=== PATIENT | female | born 1940 | race Caucasian/White ===

== ENCOUNTER 2021-04-29 22:11 | Inpatient (IN) ==
[2021-04-29 22:47] LABS: Hematocrit 39.6 % (35.3-44.9); Hemoglobin 12.5 g/dL (11.5-15.4); Immature Granulocytes % 0.4 % (0-4); Lymphocytes # 147.2 K/mcL (0.6-4.6); Lymphocytes % 91.5 %; Mean Corpuscular HGB Conc 31.6 g/dL (31.6-35.5); Mean Corpuscular Hemoglobin 28.4 pg (28.0-33.3); Mean Platelet Volume 10.9 fL (9.4-12.4); Monocytes # 3.1 K/mcL (0.0-1.3); Monocytes % 1.9 %; Platelet Count 306 K/mcL (140-400); Red Cell Distribution Width 16.1 % (11.5-14.5); Segmented Neutrophils % 6.2 %
[2021-04-29 22:51] LABS: White Blood Count 160.9 K/mcL (4.3-11.1)
[2021-04-29 23:01] LABS: Calcium 8.2 mg/dL (8.6-10.3); Potassium 4.2 mEq/L (3.5-5.1)
[2021-04-29] MEDS ORDERED: Isovue-370 500 ML BOTTLE IVP ONE (23:13)
[2021-04-29 23:14] LABS: Anisocytosis 1+ (Not Present); Platelet Estimate Normal (Normal); Reactive Lymphocytes Present (Not Present)
[2021-04-29 23:15] LABS: Smudge Cells Present (Not Present)
[2021-04-29 23:49] LABS: Albumin 3.3 g/dL (3.5-5.7); Bilirubin,Direct 0.1 mg/dL (0.0-0.2); Bilirubin,Indirect 0.6 mg/dL (0.0-1.0); Bilirubin,Total 0.7 mg/dL (0.3-1.0); Globulin 3.2 g/dL (2.4-3.5); Total Protein 6.5 g/dL (6.4-8.9); Troponin I 0.03 ng/mL (< 0.04)
[2021-04-30] MEDS ORDERED: 0.9 % Sodium Chloride 1,000 ML IVC ONE (00:56)
[2021-04-30 01:13] LABS: Influenza A PCR Negative (Negative); Influenza B PCR Negative (Negative); Resp. Syncytial Virus PCR Negative (Negative)
[2021-04-30 01:27] LABS: SARS-CoV-2 by PCR (In House) Positive (Negative)
[2021-04-30] MEDS ORDERED: *HR* Promethazine 25 MG/ML VIAL IM PRN (02:31)
[2021-04-30] MEDS ORDERED: *HR* OxyCODONE Immed Rel 5 MG TABLET PO PRN (02:31)
[2021-04-30] MEDS ORDERED: Ondansetron 4 MG/2 ML VIAL IVP PRN (02:31)
[2021-04-30] MEDS ORDERED: *HR* HYDROcodone/Acet 5/325 mg TABLET PO PRN (02:31)
[2021-04-30] MEDS ORDERED: Melatonin 3 MG TABLET PO PRN (02:31)
[2021-04-30] MEDS ORDERED: Naloxone 0.4 MG/ML INJ IVP PRN (02:31)
[2021-04-30] MEDS ORDERED: Remdesivir 200 MG in 0.9 % Sodium Chloride 100 ML IVPB ONE (04:00)
[2021-04-30 08:54] LABS: Hemoglobin 11.4 g/dL (11.5-15.4); Segmented Neutrophils % 6.9 %
[2021-04-30 08:55] LABS: Hematocrit 36.6 % (35.3-44.9); Immature Granulocytes % 0.5 % (0-4); Lymphocytes % 90.6 %; Mean Corpuscular HGB Conc 31.1 g/dL (31.6-35.5); Mean Corpuscular Hemoglobin 28.4 pg (28.0-33.3); Mean Corpuscular Volume 91.3 fL (83.0-100.0); Mean Platelet Volume 10.9 fL (9.4-12.4); Monocytes # 2.9 K/mcL (0.0-1.3); Platelet Count 297 K/mcL (140-400); Red Blood Count 4.01 M/mcL (3.82-4.97); Red Cell Distribution Width 16.1 % (11.5-14.5)
[2021-04-30 08:59] LABS: Lymphocytes # 132.3 K/mcL (0.6-4.6); Neutrophils # 10.1 K/mcL (1.6-8.9)
[2021-04-30 09:00] LABS: Albumin 3.2 g/dL (3.5-5.7); Albumin/Globulin Ratio 1.2 (1.1-2.2); Bilirubin,Direct 0.2 mg/dL (0.0-0.2); Bilirubin,Indirect 0.5 mg/dL (0.0-1.0); Bilirubin,Total 0.7 mg/dL (0.3-1.0); Globulin 2.6 g/dL (2.4-3.5); Total Protein 5.8 g/dL (6.4-8.9)
[2021-04-30 09:02] LABS: INR 1.3; Platelet Estimate Normal (Normal); Reactive Lymphocytes Present (Not Present)
[2021-04-30 09:03] LABS: Alanine Aminotransferase 7 Units/L (7-52); Albumin 3.1 g/dL (3.5-5.7); Albumin/Globulin Ratio 1.1 (1.1-2.2); Alkaline Phosphatase 42 Units/L (34-104); Aspartate Amino Transferase 22 Units/L (13-39); BUN/Creatinine Ratio 25 (6-26); Bilirubin,Total 0.6 mg/dL (0.3-1.0); Blood Urea Nitrogen 26 mg/dL (8-23); Calcium 8.1 mg/dL (8.6-10.3); Carbon Dioxide 22 mEq/L (23-29); Chloride 100 mEq/L (98-107); Globulin 2.7 g/dL (2.4-3.5); Glucose 83 mg/dL (70-105); Lactate Dehydrogenase 296 Units/L (140-271); Magnesium 2.7 mg/dL (1.6-2.6); Osmolality,Calculated 280 (280-300); Phosphorous 3.8 mg/dL (2.7-4.5); Potassium 4.3 mEq/L (3.5-5.1); Sodium 133 mEq/L (136-145); Total Protein 5.8 g/dL (6.4-8.9); eGFR For African Americans > 60 (> 60); eGFR For Non-African Americans 52 (> 60)
[2021-04-30 09:16] LABS: Ferritin 711 ng/mL (10-120)
[2021-04-30] MEDS: cefTRIAXone 1,000 MG in Water for inj. (sterile) 10 ML IVP SCH (10:51)
[2021-04-30] MEDS: Azithromycin 500 MG in 0.9 % Sodium Chloride 250 ML IVPB SCH (10:52)
[2021-04-30] MEDS: *HR* Enoxaparin 40 MG/0.4 ML SYRINGE SQ SCH (10:52)
[2021-04-30 11:12] LABS: C-Reactive Protein 257 mg/L (Less than 10)
[2021-04-30] MEDS: Lactobacillus 1 EACH CAP.SPRINK PO SCH (14:30)
[2021-04-30 18:09] LABS: Adenovirus F 40/41 PCR Not detected (Not detect); Astrovirus PCR Not detected (Not detect); C.difficile Toxin A/B Gene PCR Not detected (Not detect); Campylobacter by PCR Not detected (Not detect); Cryptosporidium by PCR Not detected (Not detect); Cyclospora cayetanensis PCR Not detected (Not detect); E. coli O157 by PCR Not detected (Not detect); Entamoeba histolytica PCR Not detected (Not detect); Enteroaggregative E.coli(EAEC) Not detected (Not detect); Enteropathogenic E.coli(EPEC) Not detected (Not detect); Enterotoxigenic E.coli (ETEC) Not detected (Not detect); Giardia lamblia PCR Not detected (Not detect); Norovirus GI/GII PCR Not detected (Not detect); Plesiomonas shigelloides PCR Not detected (Not detect); Rotavirus A PCR Not detected (Not detect); Salmonella PCR Not detected (Not detect); Sapovirus PCR Not detected (Not detect); Shig/EnteroinvasiveE coli EIEC Not detected (Not detect); Shigalike tox-prod E coli STEC Not detected (Not detect); Vibrio PCR Not detected (Not detect); Vibrio cholerae PCR Not detected (Not detect); Yersinia enterocolitica PCR Not detected (Not detect)
[2021-04-30] MEDS: Acetaminophen 325 MG TABLET PO PRN (20:52)
[2021-04-30] MEDS ORDERED: Furosemide 40 MG/4 ML VIAL IVP ONE (22:29)
[2021-04-30 23:18] LABS: VBG HCO3 19 mEq/L (21-27); VBG PCO2 31 mmHg (41-51); VBG PH 7.41 pH Units (7.32-7.42); VBG PO2 160 mmHg (25-50)
[2021-05-01] MEDS ORDERED: Remdesivir 100 MG in 0.9 % Sodium Chloride 100 ML IVPB SCH (04:00)
[2021-05-01] MEDS: Acetaminophen 325 MG TABLET PO PRN ×2 (05:32→15:11)
[2021-05-01] MEDS: *HR* Enoxaparin 40 MG/0.4 ML SYRINGE SQ SCH (05:33)
[2021-05-01] MEDS: Azithromycin 500 MG in 0.9 % Sodium Chloride 250 ML IVPB SCH (05:33)
[2021-05-01 05:43] LABS: Basophils % 0.1 %; Immature Granulocytes % 0.5 % (0-4); Lymphocytes % 88.9 %; Mean Corpuscular Volume 90.8 fL (83.0-100.0)
[2021-05-01 05:45] LABS: Basophils # 0.1 K/mcL (0.0-0.2); Hematocrit 37.5 % (35.3-44.9); Hemoglobin 11.4 g/dL (11.5-15.4); Mean Corpuscular HGB Conc 30.4 g/dL (31.6-35.5); Mean Corpuscular Hemoglobin 27.6 pg (28.0-33.3); Mean Platelet Volume 10.8 fL (9.4-12.4); Monocytes % 1.8 %; Neutrophils # 11.7 K/mcL (1.6-8.9); Platelet Count 310 K/mcL (140-400); Red Blood Count 4.13 M/mcL (3.82-4.97); Red Cell Distribution Width 16.2 % (11.5-14.5); Segmented Neutrophils % 8.7 %
[2021-05-01 05:54] LABS: Lymphocytes # 119.4 K/mcL (0.6-4.6); Monocytes # 2.4 K/mcL (0.0-1.3); White Blood Count 134.3 K/mcL (4.3-11.1)
[2021-05-01 06:02] LABS: BUN/Creatinine Ratio 17 (6-26); Blood Urea Nitrogen 16 mg/dL (8-23); Calcium 7.9 mg/dL (8.6-10.3); Carbon Dioxide 21 mEq/L (23-29); Chloride 101 mEq/L (98-107); Glucose 99 mg/dL (70-105); Osmolality,Calculated 273 (280-300); Potassium 4.2 mEq/L (3.5-5.1); Sodium 131 mEq/L (136-145); eGFR For African Americans > 60 (> 60); eGFR For Non-African Americans 58 (> 60)
[2021-05-01 06:03] LABS: Albumin 3.1 g/dL (3.5-5.7); Albumin/Globulin Ratio 1.1 (1.1-2.2); Bilirubin,Direct 0.1 mg/dL (0.0-0.2); Bilirubin,Indirect 0.6 mg/dL (0.0-1.0); Bilirubin,Total 0.7 mg/dL (0.3-1.0); Globulin 2.7 g/dL (2.4-3.5); Total Protein 5.8 g/dL (6.4-8.9)
[2021-05-01 06:07] LABS: Platelet Estimate Normal (Normal); Reactive Lymphocytes Present (Not Present); Smudge Cells Present (Not Present)
[2021-05-01] MEDS: Dexamethasone Sodium Phos/PF 10 MG/ML VIAL IVP SCH (08:48)
[2021-05-01] MEDS: cefTRIAXone 1,000 MG in Water for inj. (sterile) 10 ML IVP SCH (08:49)
[2021-05-01] MEDS: Lactobacillus 1 EACH CAP.SPRINK PO SCH (08:56)
[2021-05-01] MEDS: Loratadine 10 MG TABLET PO SCH (11:04)
[2021-05-01] MEDS: Ipratropium 1 PUFF INHALER IH SCH ×3 (14:21→21:25)
[2021-05-01] MEDS: *HR* LORazepam 1 MG TABLET PO SCH (22:37)
[2021-05-02] MEDS: Ipratropium 1 PUFF INHALER IH SCH ×4 (04:49→21:48)
[2021-05-02 05:49] LABS: Immature Granulocytes % 0.5 % (0-4); Lymphocytes % 91.3 %
[2021-05-02 05:51] LABS: Hemoglobin 10.9 g/dL (11.5-15.4); Lymphocytes # 144.3 K/mcL (0.6-4.6); Mean Corpuscular HGB Conc 30.3 g/dL (31.6-35.5); Mean Corpuscular Hemoglobin 27.3 pg (28.0-33.3); Mean Platelet Volume 11.1 fL (9.4-12.4); Monocytes % 1.8 %; Neutrophils # 10.1 K/mcL (1.6-8.9); Platelet Count 353 K/mcL (140-400); Red Cell Distribution Width 15.9 % (11.5-14.5); Segmented Neutrophils % 6.4 %
[2021-05-02 05:53] LABS: Monocytes # 2.8 K/mcL (0.0-1.3)
[2021-05-02] MEDS: *HR* Enoxaparin 40 MG/0.4 ML SYRINGE SQ SCH ×2 (06:10→18:10)
[2021-05-02] MEDS: Azithromycin 500 MG in 0.9 % Sodium Chloride 250 ML IVPB SCH (06:12)
[2021-05-02 06:16] LABS: Alanine Aminotransferase 8 Units/L (7-52); Albumin 3.2 g/dL (3.5-5.7); Albumin/Globulin Ratio 1.2 (1.1-2.2); Alkaline Phosphatase 50 Units/L (34-104); Aspartate Amino Transferase 21 Units/L (13-39); BUN/Creatinine Ratio 22 (6-26); Bilirubin,Direct 0.1 mg/dL (0.0-0.2); Bilirubin,Indirect 0.4 mg/dL (0.0-1.0); Bilirubin,Total 0.5 mg/dL (0.3-1.0); Blood Urea Nitrogen 21 mg/dL (8-23); Calcium 8.3 mg/dL (8.6-10.3); Carbon Dioxide 23 mEq/L (23-29); Chloride 102 mEq/L (98-107); Globulin 2.7 g/dL (2.4-3.5); Glucose 158 mg/dL (70-105); Magnesium 2.6 mg/dL (1.6-2.6); Osmolality,Calculated 284 (280-300); Potassium 3.8 mEq/L (3.5-5.1); Sodium 134 mEq/L (136-145); Total Protein 5.9 g/dL (6.4-8.9); eGFR For African Americans > 60 (> 60); eGFR For Non-African Americans 56 (> 60)
[2021-05-02 06:39] LABS: Platelet Estimate Normal (Normal); Poikilocytosis 1+ (Not Present); Reactive Lymphocytes Present (Not Present); Tear Drop Cells 1+ (Not Present); Toxic Granulation Present (Not Present)
[2021-05-02] MEDS: Famotidine 20 MG TABLET PO SCH (08:52)
[2021-05-02] MEDS: Lactobacillus 1 EACH CAP.SPRINK PO SCH (08:52)
[2021-05-02] MEDS: Loratadine 10 MG TABLET PO SCH (08:53)
[2021-05-02] MEDS: cefTRIAXone 1,000 MG in Water for inj. (sterile) 10 ML IVP SCH (08:53)
[2021-05-02] MEDS: Dexamethasone Sodium Phos/PF 10 MG/ML VIAL IVP SCH (08:54)
[2021-05-02] MEDS: *HR* LORazepam 1 MG TABLET PO SCH (23:23)
[2021-05-03] MEDS: Ipratropium 1 PUFF INHALER IH SCH ×4 (04:20→22:17)
[2021-05-03] MEDS: *HR* Enoxaparin 40 MG/0.4 ML SYRINGE SQ SCH ×2 (05:07→18:50)
[2021-05-03] MEDS: Azithromycin 500 MG in 0.9 % Sodium Chloride 250 ML IVPB SCH (05:08)
[2021-05-03 08:25] LABS: Hematocrit 40.9 % (35.3-44.9); Mean Corpuscular HGB Conc 29.3 g/dL (31.6-35.5); Mean Corpuscular Hemoglobin 27.3 pg (28.0-33.3); Mean Corpuscular Volume 93.2 fL (83.0-100.0); Mean Platelet Volume 10.8 fL (9.4-12.4); Platelet Count 417 K/mcL (140-400); Red Blood Count 4.39 M/mcL (3.82-4.97); Red Cell Distribution Width 16.4 % (11.5-14.5)
[2021-05-03 08:28] LABS: BUN/Creatinine Ratio 19 (6-26); Blood Urea Nitrogen 18 mg/dL (8-23); Carbon Dioxide 23 mEq/L (23-29); Chloride 103 mEq/L (98-107); Glucose 95 mg/dL (70-105); Magnesium 2.4 mg/dL (1.6-2.6); Osmolality,Calculated 284 (280-300); Sodium 136 mEq/L (136-145); eGFR For African Americans > 60 (> 60); eGFR For Non-African Americans 58 (> 60)
[2021-05-03 08:38] LABS: Albumin 3.3 g/dL (3.5-5.7); Albumin/Globulin Ratio 1.3 (1.1-2.2); Bilirubin,Direct 0.1 mg/dL (0.0-0.2); Bilirubin,Indirect 0.5 mg/dL (0.0-1.0); Bilirubin,Total 0.6 mg/dL (0.3-1.0); Globulin 2.5 g/dL (2.4-3.5); Total Protein 5.8 g/dL (6.4-8.9)
[2021-05-03 08:46] LABS: White Blood Count 176.4 K/mcL (4.3-11.1)
[2021-05-03] MEDS: cefTRIAXone 1,000 MG in Water for inj. (sterile) 10 ML IVP SCH (09:32)
[2021-05-03] MEDS: Lactobacillus 1 EACH CAP.SPRINK PO SCH (09:34)
[2021-05-03] MEDS: Loratadine 10 MG TABLET PO SCH (09:34)
[2021-05-03] MEDS: Famotidine 20 MG TABLET PO SCH (09:34)
[2021-05-03] MEDS: Dexamethasone Sodium Phos/PF 10 MG/ML VIAL IVP SCH (09:34)
[2021-05-03 13:22] LABS: Lymphocytes # 165.8 K/mcL (0.6-4.6); Neutrophils # 10.6 K/mcL (1.6-8.9); Smudge Cells Present (Not Present)
[2021-05-03 13:23] LABS: Nucleated Red Blood Cells 1 /100 WBC (0)
[2021-05-03] MEDS: *HR* LORazepam 1 MG TABLET PO SCH (21:55)
[2021-05-04] MEDS: Ipratropium 1 PUFF INHALER IH SCH ×4 (04:54→21:50)
[2021-05-04] MEDS: Azithromycin 500 MG in 0.9 % Sodium Chloride 250 ML IVPB SCH (05:01)
[2021-05-04] MEDS: *HR* Enoxaparin 40 MG/0.4 ML SYRINGE SQ SCH (05:02)
[2021-05-04 06:52] LABS: Albumin 3.4 g/dL (3.5-5.7); Albumin/Globulin Ratio 1.1 (1.1-2.2); Bilirubin,Indirect 0.7 mg/dL (0.0-1.0); Bilirubin,Total 0.7 mg/dL (0.3-1.0); Globulin 3.1 g/dL (2.4-3.5); Total Protein 6.5 g/dL (6.4-8.9)
[2021-05-04] MEDS: cefTRIAXone 1,000 MG in Water for inj. (sterile) 10 ML IVP SCH (09:01)
[2021-05-04] MEDS: Lactobacillus 1 EACH CAP.SPRINK PO SCH (09:02)
[2021-05-04] MEDS: Loratadine 10 MG TABLET PO SCH (09:02)
[2021-05-04] MEDS: Dexamethasone Sodium Phos/PF 10 MG/ML VIAL IVP SCH (09:10)
[2021-05-04] MEDS: Isovue-370 500 ML BOTTLE IVP ONE ×2 (10:55→13:43)
[2021-05-04 12:25] LABS: Nucleated Red Blood Cells 0.1 /100 WBC (0); Red Cell Distribution Width 16.6 % (11.5-14.5)
[2021-05-04 12:26] LABS: Hematocrit 39.4 % (35.3-44.9); Hemoglobin 11.6 g/dL (11.5-15.4); Mean Corpuscular HGB Conc 29.4 g/dL (31.6-35.5); Mean Corpuscular Hemoglobin 27.6 pg (28.0-33.3); Mean Corpuscular Volume 93.6 fL (83.0-100.0); Mean Platelet Volume 10.8 fL (9.4-12.4); Platelet Count 328 K/mcL (140-400); Red Blood Count 4.21 M/mcL (3.82-4.97)
[2021-05-04 12:27] LABS: BUN/Creatinine Ratio 23 (6-26); Blood Urea Nitrogen 24 mg/dL (8-23); Calcium 7.8 mg/dL (8.6-10.3); Carbon Dioxide 21 mEq/L (23-29); Chloride 102 mEq/L (98-107); Glucose 139 mg/dL (70-105); Osmolality,Calculated 286 (280-300); Potassium 4.4 mEq/L (3.5-5.1); Sodium 135 mEq/L (136-145); eGFR For African Americans > 60 (> 60); eGFR For Non-African Americans 50 (> 60)
[2021-05-04 12:39] LABS: White Blood Count 187.1 K/mcL (4.3-11.1)
[2021-05-04 13:04] LABS: Lymphocytes # 168.4 K/mcL (0.6-4.6); Monocytes # 1.9 K/mcL (0.0-1.3); Neutrophils # 16.8 K/mcL (1.6-8.9)
[2021-05-04 13:05] LABS: Platelet Estimate Normal (Normal); Smudge Cells Present (Not Present)
[2021-05-04] MEDS ORDERED: Haloperidol Lactate 5 MG/ML VIAL IM PRN (13:59)
[2021-05-04] MEDS ORDERED: *HR* Heparin 5,000 UNIT/ML VIAL IVP PRN ×2 (14:18)
[2021-05-04] MEDS: Heparin 25,000UNIT/250ML 1/2NS 25,000 UNIT/250 ML IV.SOLN IVC SCH (15:10)
[2021-05-04] MEDS: Dexmedetomidine HCl 400 MCG/100 ML MLS IVC SCH ×2 (15:56→18:15)
[2021-05-04] MEDS ORDERED: *HR* Enoxaparin 80 MG/0.8 ML SYRINGE SQ SCH (18:00)
[2021-05-04] MEDS: Cefepime HCl 2,000 MG in 0.9 % Sodium Chloride Mini Bag 100 ML IVPB SCH (18:05)
[2021-05-04 19:14] LABS: Hematocrit 39.1 % (35.3-44.9); Hemoglobin 12.4 g/dL (11.5-15.4); Mean Corpuscular HGB Conc 31.7 g/dL (31.6-35.5); Mean Corpuscular Hemoglobin 28.5 pg (28.0-33.3); Mean Corpuscular Volume 89.9 fL (83.0-100.0); Mean Platelet Volume 11.2 fL (9.4-12.4); Platelet Count 277 K/mcL (140-400); Red Blood Count 4.35 M/mcL (3.82-4.97); Red Cell Distribution Width 16.4 % (11.5-14.5)
[2021-05-04 19:23] LABS: White Blood Count 178.2 K/mcL (4.3-11.1)
[2021-05-04 20:03] LABS: INR 1.7; Prothrombin Time 18.5 Seconds (9.4-12.1)
[2021-05-04 20:16] LABS: Heparin anti-factor XA UFH 0.59 IU/mL (0.30-0.70)
[2021-05-04] MEDS: *HR* LORazepam 1 MG TABLET PO SCH (20:21)
[2021-05-05] MEDS: Ipratropium 1 PUFF INHALER IH SCH ×4 (04:06→21:33)
[2021-05-05] MEDS ORDERED: Gadolinium Contrast Agent (WT Based) IV PRN (04:36)
[2021-05-05] MEDS: Cefepime HCl 2,000 MG in 0.9 % Sodium Chloride Mini Bag 100 ML IVPB SCH ×2 (05:37→18:28)
[2021-05-05] MEDS: Azithromycin 500 MG in 0.9 % Sodium Chloride 250 ML IVPB SCH (06:15)
[2021-05-05] MEDS ORDERED: DilTIAZem 50 MG/50 ML IV.SOLN IVC SCH (07:30)
[2021-05-05] MEDS ORDERED: 0.9 % Sodium Chloride 1,000 ML IVC SCH (07:30)
[2021-05-05] MEDS ORDERED: 0.9 % Sodium Chloride 1,000 ML ONE (07:35)
[2021-05-05] MEDS ORDERED: Perflutren Lipid Microsphere 1.3 ML in 0.9 % Sodium Chloride 8.7 ML IVP PRN (08:36)
[2021-05-05 08:47] LABS: Hematocrit 39.8 % (35.3-44.9); Mean Corpuscular HGB Conc 26.1 g/dL (31.6-35.5); Mean Platelet Volume 11.3 fL (9.4-12.4); Nucleated Red Blood Cells 0.1 /100 WBC (0); Platelet Count 368 K/mcL (140-400); Red Cell Distribution Width 19.4 % (11.5-14.5)
[2021-05-05 08:47] LABS: ABG Base Excess -14 mEq/L (-2 to 3); ABG HCO3 17 mEq/L (21-27); ABG Oxygen Saturation 45 % (95-98); ABG PCO2 61 mmHg (35-45); ABG PH 7.05 pH Units (7.32-7.45); ABG PO2 36 mmHg (85-104); ABG TCO2 19 mEq/L (20-26); Blood Gas VT 380 cc
[2021-05-05 08:48] LABS: Hemoglobin 10.4 g/dL (11.5-15.4); Mean Corpuscular Volume 99.5 fL (83.0-100.0)
[2021-05-05] MEDS ORDERED: Lidocaine -MPF 1% 5 ML AMPUL INFILT ONE (08:55)
[2021-05-05 08:59] LABS: White Blood Count 292.1 K/mcL (4.3-11.1)
[2021-05-05 09:00] LABS: Calcium 7.4 mg/dL (8.6-10.3); Potassium 4.5 mEq/L (3.5-5.1)
[2021-05-05] MEDS ORDERED: *HR* Midazolam HCl 5 MG/5 ML VIAL IVP ONE (09:00)
[2021-05-05] MEDS ORDERED: *HR* Etomidate 20 MG/10 ML AMPUL IVP ONE (09:00)
[2021-05-05] MEDS ORDERED: *HR* Midazolam HCl 2 MG/2 ML VIAL IVP ONE (09:00)
[2021-05-05] MEDS ORDERED: Cholecalciferol (D-3) 1,000 UNIT (25MCG) TABLET PO SCH (09:00)
[2021-05-05] MEDS: FentaNYL (PF) 1,000 MCG/100 ML IV.SOLN IVC SCH ×2 (09:05→17:22)
[2021-05-05] MEDS: Midazolam HCl 50 MG/100 ML IV.SOLN IVC SCH ×2 (09:05→21:41)
[2021-05-05] MEDS: Cisatracurium 200 MG in 0.9 % Sodium Chloride 180 ML IVC SCH (09:35)
[2021-05-05] MEDS: Norepinephrine 4 MG/254 ML IV.SOLN IVC SCH ×4 (09:45→19:45)
[2021-05-05 10:12] LABS: Lymphocytes # 262.9 K/mcL (0.6-4.6); Monocytes # 5.8 K/mcL (0.0-1.3); Neutrophils # 23.4 K/mcL (1.6-8.9)
[2021-05-05 10:13] LABS: Platelet Estimate Normal (Normal); Smudge Cells Present (Not Present)
[2021-05-05] MEDS: Loratadine 10 MG TABLET PO SCH (11:07)
[2021-05-05] MEDS: Lactobacillus 1 EACH CAP.SPRINK PO SCH (11:07)
[2021-05-05] MEDS: Albumin Human 5% 12.5 GM/250 ML IV.SOLN IVPB SCH ×2 (11:09→11:48)
[2021-05-05] MEDS: Dexmedetomidine HCl 400 MCG/100 ML MLS IVC SCH ×2 (11:10→18:29)
[2021-05-05] MEDS: Dexamethasone Sodium Phos/PF 10 MG/ML VIAL IVP SCH (11:20)
[2021-05-05] MEDS: Heparin 25,000UNIT/250ML 1/2NS 25,000 UNIT/250 ML IV.SOLN IVC SCH (11:48)
[2021-05-05] MEDS ORDERED: Artificial Tears SOLN 15 ML BOTTLE BOTH EYES PRN (11:57)
[2021-05-05] MEDS: Artificial Tears SOLN 15 ML BOTTLE BOTH EYES SCH ×4 (12:28→23:34)
[2021-05-05 12:49] LABS: ABG Base Excess -2 mEq/L (-2 to 3); ABG HCO3 28 mEq/L (21-27); ABG Oxygen Saturation 89 % (95-98); ABG PCO2 76 mmHg (35-45); ABG PH 7.17 pH Units (7.32-7.45); ABG PO2 74 mmHg (85-104); ABG TCO2 30 mEq/L (20-26); Blood Gas Modality ASSIST CONTROL; Blood Gas VT 380 cc
[2021-05-05] MEDS ORDERED: Famotidine 20 MG/2 ML VIAL IVP SCH ×2 (18:00)
[2021-05-05] MEDS: *HR* LORazepam 1 MG TABLET PO SCH (19:48)
[2021-05-05] MEDS: Chlorhexidine Rinse 15 ML MOUTHWASH MM SCH (21:39)
[2021-05-06] MEDS: Cisatracurium 200 MG in 0.9 % Sodium Chloride 180 ML IVC SCH ×2 (00:44→19:01)
[2021-05-06] MEDS: Norepinephrine 4 MG/254 ML IV.SOLN IVC SCH ×5 (01:05→20:50)
[2021-05-06] MEDS: Dexmedetomidine HCl 400 MCG/100 ML MLS IVC SCH ×3 (01:08→23:19)
[2021-05-06] MEDS: FentaNYL (PF) 1,000 MCG/100 ML IV.SOLN IVC SCH ×3 (02:00→22:30)
[2021-05-06] MEDS: Artificial Tears SOLN 15 ML BOTTLE BOTH EYES SCH ×6 (03:07→23:19)
[2021-05-06] MEDS: Ipratropium 1 PUFF INHALER IH SCH ×4 (03:50→22:46)
[2021-05-06 04:06] LABS: Calcium 6.9 mg/dL (8.6-10.3); Magnesium 2.5 mg/dL (1.6-2.6); Potassium 4.7 mEq/L (3.5-5.1)
[2021-05-06 04:27] LABS: Nucleated Red Blood Cells 0.2 /100 WBC (0)
[2021-05-06 04:38] LABS: Monocytes % 1.9 %
[2021-05-06 04:39] LABS: Red Blood Count 3.89 M/mcL (3.82-4.97)
[2021-05-06 04:40] LABS: Basophils % 0.1 %; Hematocrit 38.2 % (35.3-44.9); Hemoglobin 10.4 g/dL (11.5-15.4); Immature Granulocytes % 1.1 % (0-4); Lymphocytes % 86.9 %; Mean Corpuscular HGB Conc 27.2 g/dL (31.6-35.5); Mean Corpuscular Hemoglobin 26.7 pg (28.0-33.3); Mean Corpuscular Volume 98.2 fL (83.0-100.0); Monocytes # 4.8 K/mcL (0.0-1.3); Platelet Count 356 K/mcL (140-400); Red Cell Distribution Width 18.7 % (11.5-14.5)
[2021-05-06] MEDS: Cefepime HCl 2,000 MG in 0.9 % Sodium Chloride Mini Bag 100 ML IVPB SCH ×2 (05:18→17:35)
[2021-05-06 05:21] LABS: ABG Base Excess 1 mEq/L (-2 to 3); ABG HCO3 26 mEq/L (21-27); ABG Oxygen Saturation 97 % (95-98); ABG PCO2 42 mmHg (35-45); ABG PH 7.41 pH Units (7.32-7.45); ABG PO2 92 mmHg (85-104); ABG TCO2 28 mEq/L (20-26); Blood Gas Modality ASSIST CONTROL; Blood Gas VT 350 cc
[2021-05-06 05:23] LABS: Basophils # 0.3 K/mcL (0.0-0.2); Lymphocytes # 221.3 K/mcL (0.6-4.6); Neutrophils # 25.5 K/mcL (1.6-8.9)
[2021-05-06 05:24] LABS: White Blood Count 254.7 K/mcL (4.3-11.1)
[2021-05-06] MEDS: Azithromycin 500 MG in 0.9 % Sodium Chloride 250 ML IVPB SCH (05:46)
[2021-05-06] MEDS ORDERED: *HR* Metoprolol 5 MG/5 ML VIAL IVP ONE (06:46)
[2021-05-06] MEDS: Dexamethasone Sodium Phos/PF 10 MG/ML VIAL IVP SCH (08:02)
[2021-05-06] MEDS ORDERED: Levothyroxine Sodium 100 MCG VIAL IVP SCH (09:00)
[2021-05-06] MEDS: Chlorhexidine Rinse 15 ML MOUTHWASH MM SCH ×2 (09:30→20:45)
[2021-05-06] MEDS: Pantoprazole 40 MG VIAL IVP SCH (09:30)
[2021-05-06] MEDS: Levothyroxine Sodium 100 MCG VIAL IVP SCH (09:35)
[2021-05-06] MEDS: Heparin 25,000UNIT/250ML 1/2NS 25,000 UNIT/250 ML IV.SOLN IVC SCH (10:29)
[2021-05-06] MEDS: Midazolam HCl 50 MG/100 ML IV.SOLN IVC SCH (14:55)
[2021-05-06] MEDS: *HR* LORazepam 1 MG TABLET PO SCH (20:43)
[2021-05-07] MEDS: Artificial Tears SOLN 15 ML BOTTLE BOTH EYES SCH ×6 (03:22→23:23)
[2021-05-07] MEDS: Ipratropium 1 PUFF INHALER IH SCH ×4 (03:38→20:23)
[2021-05-07 04:16] LABS: Hematocrit 34.5 % (35.3-44.9); Hemoglobin 9.4 g/dL (11.5-15.4); Mean Corpuscular HGB Conc 27.2 g/dL (31.6-35.5); Mean Corpuscular Hemoglobin 27.1 pg (28.0-33.3); Mean Corpuscular Volume 99.4 fL (83.0-100.0); Mean Platelet Volume 10.5 fL (9.4-12.4); Platelet Count 248 K/mcL (140-400); Red Blood Count 3.47 M/mcL (3.82-4.97); Red Cell Distribution Width 18.7 % (11.5-14.5)
[2021-05-07 04:19] LABS: Potassium 5.4 mEq/L (3.5-5.1)
[2021-05-07 04:26] LABS: White Blood Count 171.4 K/mcL (4.3-11.1)
[2021-05-07 05:50] LABS: ABG Base Excess -3 mEq/L (-2 to 3); ABG HCO3 24 mEq/L (21-27); ABG Oxygen Saturation 100 % (95-98); ABG PCO2 50 mmHg (35-45); ABG PH 7.29 pH Units (7.32-7.45); ABG PO2 277 mmHg (85-104); ABG TCO2 25 mEq/L (20-26); Blood Gas Modality ASSIST CONTROL; Blood Gas VT 400 cc
[2021-05-07] MEDS: Norepinephrine 4 MG/254 ML IV.SOLN IVC SCH (06:05)
[2021-05-07] MEDS: Cefepime HCl 2,000 MG in 0.9 % Sodium Chloride Mini Bag 100 ML IVPB SCH (06:25)
[2021-05-07] MEDS: Azithromycin 500 MG in 0.9 % Sodium Chloride 250 ML IVPB SCH (06:59)
[2021-05-07] MEDS: Chlorhexidine Rinse 15 ML MOUTHWASH MM SCH ×2 (08:43→21:09)
[2021-05-07] MEDS: Pantoprazole 40 MG VIAL IVP SCH (08:43)
[2021-05-07] MEDS: Dexamethasone Sodium Phos/PF 10 MG/ML VIAL IVP SCH (08:44)
[2021-05-07] MEDS: Levothyroxine Sodium 100 MCG VIAL IVP SCH (08:44)
[2021-05-07] MEDS: FentaNYL (PF) 1,000 MCG/100 ML IV.SOLN IVC SCH ×2 (09:21→20:30)
[2021-05-07] MEDS: Midazolam HCl 50 MG/100 ML IV.SOLN IVC SCH (09:22)
[2021-05-07] MEDS: Cisatracurium 200 MG in 0.9 % Sodium Chloride 180 ML IVC SCH (10:59)
[2021-05-07] MEDS ORDERED: Albumin 25% 25gram/100mL 25 GM/100 ML IV.SOLN IVPB ONE (13:34)
[2021-05-07] MEDS ORDERED: SODIUM ZIRCONIUM CYCLOSILICATE 5 GM POWD.PACK PO ONE (14:09)
[2021-05-07] MEDS: Cefepime HCl 1,000 MG in 0.9 % Sodium Chloride Mini Bag 100 ML IVPB SCH (17:34)
[2021-05-07] MEDS: Dexmedetomidine HCl 400 MCG/100 ML MLS IVC SCH (21:04)
[2021-05-07] MEDS: Heparin 25,000UNIT/250ML 1/2NS 25,000 UNIT/250 ML IV.SOLN IVC SCH (21:04)
[2021-05-07] MEDS: *HR* LORazepam 1 MG TABLET PO SCH (21:08)
[2021-05-08] MEDS: Midazolam HCl 50 MG/100 ML IV.SOLN IVC SCH (02:30)
[2021-05-08] MEDS: Artificial Tears SOLN 15 ML BOTTLE BOTH EYES SCH ×6 (03:29→23:34)
[2021-05-08] MEDS: Dexmedetomidine HCl 400 MCG/100 ML MLS IVC SCH ×2 (03:29→20:38)
[2021-05-08] MEDS: Cisatracurium 200 MG in 0.9 % Sodium Chloride 180 ML IVC SCH (03:45)
[2021-05-08 04:25] LABS: ABG Base Excess -5 mEq/L (-2 to 3); ABG HCO3 22 mEq/L (21-27); ABG Oxygen Saturation 89 % (95-98); ABG PCO2 48 mmHg (35-45); ABG PH 7.26 pH Units (7.32-7.45); ABG PO2 65 mmHg (85-104); ABG TCO2 23 mEq/L (20-26); Blood Gas VT 400 cc
[2021-05-08 04:27] LABS: Hemoglobin 8.5 g/dL (11.5-15.4); Mean Corpuscular Volume 99.7 fL (83.0-100.0)
[2021-05-08] MEDS: Ipratropium 1 PUFF INHALER IH SCH ×4 (04:28→20:38)
[2021-05-08 04:29] LABS: Hematocrit 30.6 % (35.3-44.9); Mean Corpuscular HGB Conc 27.8 g/dL (31.6-35.5); Mean Corpuscular Hemoglobin 27.7 pg (28.0-33.3); Mean Platelet Volume 11.5 fL (9.4-12.4); Platelet Count 178 K/mcL (140-400); Red Blood Count 3.07 M/mcL (3.82-4.97); Red Cell Distribution Width 18.4 % (11.5-14.5)
[2021-05-08 04:40] LABS: White Blood Count 123.2 K/mcL (4.3-11.1)
[2021-05-08 04:48] LABS: Calcium 7.3 mg/dL (8.6-10.3); Potassium 4.9 mEq/L (3.5-5.1)
[2021-05-08] MEDS: FentaNYL (PF) 1,000 MCG/100 ML IV.SOLN IVC SCH ×2 (05:30→15:08)
[2021-05-08] MEDS: Cefepime HCl 1,000 MG in 0.9 % Sodium Chloride Mini Bag 100 ML IVPB SCH (05:58)
[2021-05-08] MEDS: Azithromycin 500 MG in 0.9 % Sodium Chloride 250 ML IVPB SCH (06:29)
[2021-05-08] MEDS: Pantoprazole 40 MG VIAL IVP SCH (07:47)
[2021-05-08] MEDS: Levothyroxine Sodium 100 MCG VIAL IVP SCH (07:47)
[2021-05-08] MEDS: Dexamethasone Sodium Phos/PF 10 MG/ML VIAL IVP SCH (07:47)
[2021-05-08] MEDS: Chlorhexidine Rinse 15 ML MOUTHWASH MM SCH ×2 (07:48→20:49)
[2021-05-08 12:36] LABS: Bilirubin,Urine Negative (Negative); Blood,Urine Large (Negative); Clarity,Urine Cloudy (Clear); Color,Urine Yellow (Yellow); Glucose,Urine (UA) Normal (Normal); Ketones,Urine Trace mg/dL (Negative); Leukocyte Esterase,Urine Negative (Negative); Nitrite,Urine Negative (Negative); PH,Urine 5.5 pH Units (5.0-8.0); Protein,Urine 100 mg/dL (Neg-Trace); Specific Gravity,Urine 1.025 (1.010-1.025); Urobilinogen,Urine Normal (Normal)
[2021-05-08 12:39] LABS: Protein/Creatinine Ratio,Urine 1.81 mg/mg (0.00-0.20)
[2021-05-08 12:47] LABS: Bacteria,Urine Few per hpf (None-Few); Budding Yeast,Urine Many per hpf (None Seen); Granular Casts,Urine Few per lpf (None Seen); Hyaline Casts,Urine Few per lpf (None Seen); Mucus,Urine Few per lpf (None-Few); Squamous Epithelial Cell,Urine Few per hpf (None-Few); Uric Acid Crystals,Urine Present per hpf
[2021-05-08] MEDS ORDERED: D5 IVC SCH ×2 (16:00→16:15)
[2021-05-08] MEDS ORDERED: CISATRACURIUM IVC SCH (16:00)
[2021-05-08] MEDS ORDERED: WATER IVC SCH ×2 (16:00→16:15)
[2021-05-08] MEDS ORDERED: FENTANYL IVC SCH (16:15)
[2021-05-08] MEDS: WATER IVC SCH ×2 (17:29→21:13)
[2021-05-08] MEDS: D5 IVC SCH ×2 (17:29→21:13)
[2021-05-08] MEDS: MIDAZOLAM HCL IVC SCH (17:29)
[2021-05-08] MEDS: Heparin 25,000UNIT/250ML 1/2NS 25,000 UNIT/250 ML IV.SOLN IVC SCH (20:38)
[2021-05-08] MEDS: *HR* LORazepam 1 MG TABLET PO SCH (20:43)
[2021-05-08] MEDS: Norepinephrine 4 MG/254 ML IV.SOLN IVC SCH (20:53)
[2021-05-08] MEDS: FENTANYL IVC SCH (21:13)
[2021-05-09] MEDS: Heparin 25,000UNIT/250ML 1/2NS 25,000 UNIT/250 ML IV.SOLN IVC SCH (00:40)
[2021-05-09] MEDS: WATER IVC SCH ×3 (00:44→12:26)
[2021-05-09] MEDS: D5 IVC SCH ×3 (00:44→12:26)
[2021-05-09] MEDS: FENTANYL IVC SCH ×2 (00:44→11:18)
[2021-05-09] MEDS: Dexmedetomidine HCl 400 MCG/100 ML MLS IVC SCH (00:45)
[2021-05-09] MEDS: Ipratropium 1 PUFF INHALER IH SCH ×2 (03:58→07:32)
[2021-05-09 04:10] LABS: ABG Base Excess -3 mEq/L (-2 to 3); ABG HCO3 24 mEq/L (21-27); ABG Oxygen Saturation 87 % (95-98); ABG PCO2 52 mmHg (35-45); ABG PH 7.27 pH Units (7.32-7.45); ABG PO2 61 mmHg (85-104); ABG TCO2 25 mEq/L (20-26); Blood Gas VT 400 cc
[2021-05-09 04:19] LABS: Hemoglobin 8.4 g/dL (11.5-15.4); Platelet Count 173 K/mcL (140-400)
[2021-05-09 04:20] LABS: VBG Ionized Calcium 1.04 mmol/L (1.15-1.35)
[2021-05-09 04:20] LABS: Hematocrit 31.1 % (35.3-44.9); Mean Corpuscular Hemoglobin 27.3 pg (28.0-33.3); Mean Platelet Volume 11.7 fL (9.4-12.4); Red Blood Count 3.08 M/mcL (3.82-4.97); Red Cell Distribution Width 18.8 % (11.5-14.5)
[2021-05-09 04:29] LABS: White Blood Count 140.6 K/mcL (4.3-11.1)
[2021-05-09 04:38] LABS: Calcium 7.3 mg/dL (8.6-10.3); Potassium 4.9 mEq/L (3.5-5.1)
[2021-05-09 04:39] LABS: Phosphorous 4.4 mg/dL (2.7-4.5)
[2021-05-09] MEDS: Norepinephrine 4 MG/254 ML IV.SOLN IVC SCH (04:47)
[2021-05-09] MEDS: Artificial Tears SOLN 15 ML BOTTLE BOTH EYES SCH ×3 (04:47→12:27)
[2021-05-09] MEDS: Pantoprazole 40 MG VIAL IVP SCH (08:15)
[2021-05-09] MEDS: Levothyroxine Sodium 100 MCG VIAL IVP SCH (08:15)
[2021-05-09] MEDS: Chlorhexidine Rinse 15 ML MOUTHWASH MM SCH (08:15)
[2021-05-09] MEDS: Dexamethasone Sodium Phos/PF 10 MG/ML VIAL IVP SCH (08:16)
[2021-05-09] MEDS: MIDAZOLAM HCL IVC SCH (12:26)
[2021-05-09 13:55] VITALS: TEMP 98.2
[2021-05-09 14:23] VITALS: BP 119/75; PULSE 95
[2021-05-09] MEDS ORDERED: *HR* LORazepam 2 MG/ML VIAL IVP PRN (15:33)
[2021-05-09] MEDS ORDERED: Haloperidol Lactate 5 MG/ML VIAL IVP PRN (15:33)
[2021-05-09] MEDS ORDERED: Atropine 1% Opth Drops 100 DROP/5 ML BOTTLE SL PRN (15:33)
[2021-05-09] MEDS ORDERED: *HR* FentaNYL (PF) 100 MCG/2 ML VIAL IVP PRN (15:34)
[2021-05-09 18:15] VITALS: O2SAT 91
[2021-05-12] MEDS ORDERED: Levothyroxine Sodium 100 MCG VIAL IVP SCH (09:00)
== END 2021-05-09 22:23 | disposition expired | DRG 207 ==
LOC: EMEROOARM 22:11 → 3ANU 22:11 → SUATTDRO 04-30 08:44 → 3ANU 04-30 10:22 → SUATTDRO 05-01 20:59 → 3ANU 05-04 06:22 → 2NENU 05-04 12:17 → ICNU 05-05 10:23
PROVIDERS: ADMIT Family Medicine; ATTEND Internal Medicine